=== PATIENT | male | born 1995 | race Hispanic/Latino ===

== ENCOUNTER 2017-11-17 11:59 | Emergency (ER) | payer SELFPAY ==
[2017-11-17] MEDS ORDERED: Ibuprofen 600 MG TAB ONE (12:27)
[2017-11-17] MEDS ORDERED: Dexamethasone 4 MG TAB ONE (12:27)
== END 2017-11-17 12:42 | disposition home or self-care (01) ==
LOC: SCSER 11:59
DX: H65.92 Unspecified nonsuppurative otitis media, left ear (principal); J02.9 Acute pharyngitis, unspecified; F17.210 Nicotine dependence, cigarettes, uncomplicated
CPT/HCPCS: 99282; J8540

== ENCOUNTER 2018-09-07 20:35 | Emergency (ER) | payer SELFPAY | END 2018-09-07 21:01 | disposition home or self-care (01) | LOC: SCSER 20:35 | DX: S16.1XXA Strain of muscle, fascia and tendon at neck level, initial encounter (principal); J06.9 Acute upper respiratory infection, unspecified; F17.200 Nicotine dependence, unspecified, uncomplicated; X58.XXXA Exposure to other specified factors, initial encounter | CPT/HCPCS: 99283 ==

== ENCOUNTER 2024-09-06 08:23 | Day surgery (SDC) | payer OTHER ==
[2024-09-06 08:35] LABS: #Basophils Less than 0.03 10x3/uL (0.0-0.2); #Eosinophils 0.61 10x3/uL (0.0-0.7); #Monocytes 0.35 10x3/uL (0.11-0.59); #Neutrophils 1.45 10x3/uL (1.40-6.50); %Basophils 0.4 % (0.0-1.0); %Eosinophils 13.6 % (0.0-10.0); %Lymphocytes 45.4 % (21.0-51.0); %Monocytes 7.8 % (0.0-10.0); %Neutrophils 32.6 % (42.0-75.0); Hematocrit 43.5 % (42.0-52.0); Hemoglobin 15.6 g/dL (14.0-18.0); Mean Corpuscular Hemoglobin 30.9 pg (27.0-31.0); Mean Corpuscular Volume 86.1 fL (78.0-98.0); Platelet Count 220 10x3/uL (130-400); Red Blood Cell (RBC) Count 5.05 mill/uL (4.70-6.10); White Blood Cell (WBC) Count 4.47 10x3/uL (4.8-10.8)
[2024-09-06 08:50] LABS: INR-International Normal Ratio 0.9; Prothrombin Time 11.7 sec (12.0-14.7)
[2024-09-06 08:51] LABS: PTT 31.2 sec (22.9-36.1)
[2024-09-06] MEDS ORDERED: Lidocaine 1% PF 5 ML VIAL ONE (09:49)
[2024-09-06] MEDS ORDERED: Sodium Bicarbonate 2.5 MEQ/5 ML SDV ONE (09:50)
== END 2024-09-06 14:13 | disposition home or self-care (01) ==
LOC: CT 08:23
PROVIDERS: ATTEND Internal Medicine Nephrology
PROC: 0TB13ZX Excision of Left Kidney, Percutaneous Approach, Diagnostic (ICD-10-PCS; principal; 2024-09-06)
DX: I12.9 Hypertensive chronic kidney disease with stage 1 through stage 4 chronic kidney disease, or unspecified chronic kidney disease (principal); N18.1 Chronic kidney disease, stage 1; D63.1 Anemia in chronic kidney disease; F17.200 Nicotine dependence, unspecified, uncomplicated; Z86.718 Personal history of other venous thrombosis and embolism
CPT/HCPCS: 36000; 36415; 50200; 77002; 77012; 85025; 85610; 85730; 88329; 99152; J2250; J3010